=== PATIENT | male | born 1995 | race Caucasian/White ===

== ENCOUNTER 2019-09-08 15:55 | Emergency (ER) | payer BC ==
[~2019-09-08] VITALS: Ht 2.5 cm; Wt 86.4 kg
[2019-09-08 16:11] VITALS: TEMP 98.5
[2019-09-08] MEDS ORDERED: NORCO 325 MG-51 TAB PO (19:23)
[2019-09-08 20:36] VITALS: BP 130/87; PULSE 97
== END 2019-09-08 20:30 | disposition home or self-care (01) ==
LOC: COL.ER 15:55
DX: S63.054A Dislocation of other carpometacarpal joint of right hand, initial encounter (principal); R40.2412 Glasgow coma scale score 13-15, at arrival to emergency department; V29.9XXA Motorcycle rider (driver) (passenger) injured in unspecified traffic accident, initial encounter
CPT/HCPCS: J2405; J2704; J3010; J7030; Q4050